=== PATIENT | female | born 1965 ===

== ENCOUNTER 2020-01-06 14:30 | Outpatient (CLI) | payer MEDICAID, OTHER ==
[2020-01-06 18:51] LABS: THYROID STIMULATING HORMONE 11.41 uIU/mL (0.34-5.60)
[2020-01-06 18:54] LABS: FREE T4 (FREE THYROXINE) 0.6 ng/dL (0.58-1.64)
== END 2020-01-06 23:59 | disposition home or self-care (01) ==
LOC: LAB.WCP 14:30
PROVIDERS: ATTEND Physician Assistant
DX: E05.00 Thyrotoxicosis with diffuse goiter without thyrotoxic crisis or storm (principal)
CPT/HCPCS: 36415; 84439; 84443; 84481